=== PATIENT | male | born 1955 | race Caucasian/White ===

== ENCOUNTER → 2018-12-03 | Outpatient (REF) | payer OTHER | LOC: M SFHCLERA 13:05 | PROVIDERS: ATTEND Physician Assistant | DX: N39.0 Urinary tract infection, site not specified (principal) ==

== ENCOUNTER → 2019-03-13 | Outpatient (REF) | LOC: M LAB LCGH 14:07 | PROVIDERS: ATTEND Physician Assistant | DX: D04.62 Carcinoma in situ of skin of left upper limb, including shoulder (principal) ==

== ENCOUNTER → 2019-05-08 | Outpatient (REF) | payer OTHER | LOC: M LAB LCGH 15:49 | PROVIDERS: ATTEND Physician Assistant | DX: C44.529 Squamous cell carcinoma of skin of other part of trunk (principal) ==